=== PATIENT | female | born 1930 | race Caucasian/White ===

== ENCOUNTER → 2016-11-03 | Outpatient (REF) ==
[2016-11-03 11:23] LABS: THYROID STIMULATING HORMONE 1.41 uIU/mL (0.465-4.680)
== END ==
LOC: ZLAB.WCH 10:42
PROVIDERS: Family Medicine
DX: Z01.89 Encounter for other specified special examinations (principal)

== ENCOUNTER → 2017-10-06 | Outpatient (REF) | LOC: ZLAB.WCH 08:36 | DX: Z01.89 Encounter for other specified special examinations (principal) ==